=== PATIENT | female | born 1995 | race Caucasian/White ===

== ENCOUNTER → 2017-05-10 | Outpatient (CLI) | payer OTHER ==
[2017-05-10 18:42] LABS: URINE APPEARANCE TURBID (CLEAR); URINE BILIRUBIN NEG (NEG); URINE COLOR YELLOW; URINE EPITHELIAL CELL AUTO >30 /lpf (0-5); URINE NITRITE NEG (NEG); URINE PH 8.5 (4.5-7.5); URINE SPECIFIC GRAVITY 1.022 (1.000-1.030); UROBILINOGEN NEG (NEG)
[2017-05-10 18:44] LABS: MANUAL MICROSCOPIC REQUIRED? NO; REVIEW REQ? NO
== END | disposition home or self-care (01) ==
LOC: C.LABSPEC 17:03
PROVIDERS: ATTEND Obstetrics & Gynecology
DX: Z34.01 Encounter for supervision of normal first pregnancy, first trimester (principal)

== ENCOUNTER → 2017-05-13 | Outpatient (CLI) | payer OTHER ==
[2017-05-17 10:27] LABS: CHLAMYDIA TRACH RNA*** NOT DETECTED (NOT DETECTED); GC (NEIS GONORRHOEAE)RNA** NOT DETECTED (NOT DETECTED)
== END | disposition home or self-care (01) ==
LOC: C.LABSPEC 13:26
PROVIDERS: ATTEND Obstetrics & Gynecology
DX: Z34.01 Encounter for supervision of normal first pregnancy, first trimester (principal)

== ENCOUNTER → 2017-05-13 | Outpatient (CLI) | payer OTHER | END | disposition home or self-care (01) | LOC: C.LAB1850 17:13 | PROVIDERS: ATTEND Obstetrics & Gynecology | DX: O02.1 Missed abortion (principal) ==

== ENCOUNTER → 2017-05-13 | Outpatient (CLI) | payer OTHER | END | disposition home or self-care (01) | LOC: C.PAPS 17:51 | PROVIDERS: ATTEND Obstetrics & Gynecology | DX: Z34.02 Encounter for supervision of normal first pregnancy, second trimester (principal) ==

== ENCOUNTER 2018-11-28 03:39 | Inpatient (IN) ==
[2018-11-28] MEDS: LACTATED RINGER'S 1,000 ML IV PRN ×2 (04:30→05:26)
[2018-11-28] MEDS ORDERED: BUPIVACAINE 0.25% 30 ML VIAL ONE (04:39)
[2018-11-28] MEDS ORDERED: ePHEDrine sulfate 50 MG/ML AMP ONE (04:39)
[2018-11-28] MEDS ORDERED: fentaNYL 2MCG/ML ROPIV 1.25MG/ML 100 ML BAG EPI ONE (04:40)
[2018-11-28] MEDS ORDERED: fentaNYL citrate 100 MCG/2 ML VIAL ONE (04:40)
[2018-11-28 05:13] LABS: Hematocrit (blood only) 29.8 % (37-47); Hemoglobin 10.1 g/dL (12.0-16.0); Mean Corpuscular Volume 87.6 fL (80-100); Mean Platelet Volume 9.8 fL (7.4-10.4); Platelet Count 256 K/uL (130-400); RDW Coefficient of Variation 15.5 % (11.5-14.5); White Blood Count 19.96 K/uL (4.8-10.8)
[2018-11-28 05:16] LABS: Mean Corpuscular Hgb Conc 33.9 g/dL (32-36)
--- NOTE | 2018-11-28 05:52 | Anesthesiology Consultation ---
Date of Service November 28, 2018 Assessment & Plan Chart Review Chart Review: Acceptable Risk for Labor Epidural Consults Requested none History Height/Weight Height: 5 ft 5 in Weight: 92.986 kg Allergies Allergy/AdvReac Type Severity Reaction Status Date / Time No Known Allergies Allergy Unverified 05/26/18 15:06 Medications Home Medications Medication Instructions Recorded Confirmed Last Taken vit-iron fum-folic ac 1 tab PO DAILY 05/26/18 11/28/18 11/27/18 12:00 [ Vitamin] buprenorphine HCl 8 mg SUBLINGUAL DAILY 11/26/18 11/28/18 11/28/18 00:01 fluoxetine [Prozac] 20 mg PO DAILY 11/26/18 11/28/18 11/27/18 12:00 Active Medications Generic Name Dose Route Start Last Admin Trade Name Freq PRN Reason Stop Dose Admin Lactated Ringer's 1,000 mls @ 125 mls/hr 11/28/18 04:20 11/28/18 05:26 Lr IV 11/30/18 04:19 125 mls/hr .Q8H PRN Administration L&D Protocol Protocol Past Medical History Medical History Alcohol intoxication Depression Pneumonia Spontaneous miscarriage UTI (urinary tract infection) Past Family History Family History Other Diabetes Hypertension Kidney disease Seizures Past Surgical History Surgical History No significant past surgical history Social History Smoking Status: Current every day smoker tobacco type: cigarettes Smoking cigarettes per day: 10-15 Do You Dip or Chew Tobacco: No Hx Alcohol Use: No Hx Substance Use: Yes substance use type: former substance user Physical Exam Vital Signs Last Vital Signs Temp 37.1 C 11/28/18 04:04 Pulse 80 11/28/18 05:49 Resp 18 11/28/18 04:04 BP 103/60 11/28/18 05:49 Pulse Ox 97 11/28/18 05:46
[2018-11-28] MEDS ORDERED: DiphenhydrAMINE HCL 50 MG/ML VIAL IV PRN (05:53)
[2018-11-28] MEDS ORDERED: NALOXONE HCL 1 MG in SODIUM CHLORIDE 0.9% 1000ML 1,000 ML IV PRN (05:53)
[2018-11-28] MEDS ORDERED: NALBUPHINE HCL INJ 10 MG/ML AMP IV PRN (05:53)
[2018-11-28] MEDS ORDERED: NALOXONE HCL 0.4 MG/1 ML VIAL/CARP IV PRN (05:53)
[2018-11-28] MEDS ORDERED: fentaNYL 2MCG/ML ROPIV 1.25MG/ML 100 ML BAG EPI PRN (05:53)
[2018-11-28] MEDS ORDERED: ePHEDrine sulfate 50 MG/ML AMP IV PRN (05:53)
[2018-11-28] MEDS ORDERED: Nursing to Pharmacy Communication ONE ×2 (08:25→19:04)
--- NOTE | 2018-11-28 08:53 | Obstetrical Progress Note ---
Date of Service November 28, 2018 Physical Exam Genitourinary: Manual OB Exam: + cervical dilation 3 cm and 4 cm, + cervical effacement 70%, + station high and + amniotic fluid OB Exam Monitor Tracing: + external FHT monitor used and + category I Cervidil out post exam Results & Data Vital Signs (Past 12 Hours) Vital Signs Temp Pulse Resp BP Pulse Ox 11/28/18 08:46 73 97 11/28/18 08:41 72 97 11/28/18 08:36 78 16 111/73 96 11/28/18 08:31 71 96 11/28/18 08:26 77 96 11/28/18 08:21 74 16 112/76 97 11/28/18 08:16 76 98 11/28/18 08:11 78 98 11/28/18 08:06 76 98 11/28/18 08:05 16 94/52 L 11/28/18 08:01 71 96 11/28/18 07:56 69 97 11/28/18 07:51 78 102/55 L 97 11/28/18 07:46 67 97 11/28/18 07:41 67 97 11/28/18 07:36 72 97 11/28/18 07:31 76 96 11/28/18 07:26 77 97 11/28/18 07:21 70 112/72 97 11/28/18 07:16 74 96 11/28/18 07:15 36.5 C 16 11/28/18 07:11 73 98 11/28/18 07:07 67 18 119/66 11/28/18 07:06 70 97 11/28/18 07:01 73 97 11/28/18 06:56 71 97 11/28/18 06:51 73 97 11/28/18 06:46 75 97 11/28/18 06:41 71 98 11/28/18 06:37 71 121/75 11/28/18 06:36 81 98 11/28/18 06:31 80 98 11/28/18 06:26 77 97 11/28/18 06:21 78 97 11/28/18 06:16 80 16 128/79 97 11/28/18 06:11 80 97 11/28/18 06:10 79 111/73 11/28/18 06:06 79 110/73 98 11/28/18 06:01 82 18 122/78 98 11/28/18 05:56 94 H 98 11/28/18 05:55 100 H 101/53 L 11/28/18 05:51 75 97 11/28/18 05:49 80 103/60 11/28/18 05:47 81 108/62 11/28/18 05:46 81 97 11/28/18 05:45 81 18 110/67 11/28/18 05:43 179 H 124/83 11/28/18 05:41 83 119/84 97 11/28/18 05:36 90 98 11/28/18 05:31 85 97 11/28/18 05:28 97 H 87 L 11/28/18 05:26 77 98 11/28/18 05:21 85 99 11/28/18 04:04 37.1 C 96 H 18 138/90 11/28/18 03:56 37.1 C 96 H 16 138/90
[2018-11-28] MEDS ORDERED: BUPRENORPHINE HCL 8 MG SUBL SL SCH (09:00)
[2018-11-28] MEDS: BUPRENORPHINE HCL 8 MG SUBL SL SCH ×3 (09:05→21:46)
--- NOTE | 2018-11-28 11:42 | Obstetrical Progress Note ---
Date of Service November 28, 2018 Physical Exam Genitourinary: OB Exam Abdomen: + vertex and + regular contractions Manual OB Exam: + cervical dilation 10 cm, + cervical effacement 100% and + amniotic fluid meconium OB Exam Monitor Tracing: + external FHT monitor used and + category I AROM with light meconium noted will start to push Results & Data Vital Signs (Past 12 Hours) Vital Signs Temp Pulse Resp BP Pulse Ox 11/28/18 11:36 113 H 98 11/28/18 11:35 85 125/87 11/28/18 11:31 88 98 11/28/18 11:26 82 98 11/28/18 11:21 81 98 11/28/18 11:20 60 16 114/68 11/28/18 11:16 72 97 11/28/18 11:11 89 99 11/28/18 11:06 80 124/72 97 11/28/18 11:01 89 98 11/28/18 10:56 74 95 11/28/18 10:51 71 116/71 96 11/28/18 10:46 85 97 11/28/18 10:41 71 96 11/28/18 10:38 88 18 117/58 L 11/28/18 10:37 72 174/64 H 11/28/18 10:36 90 97 11/28/18 10:32 73 94 11/28/18 10:31 75 95 11/28/18 10:26 71 97 11/28/18 10:22 95 H 123/89 11/28/18 10:21 96 H 98 11/28/18 10:16 83 98 11/28/18 10:11 83 97 11/28/18 10:06 77 95 11/28/18 10:05 82 121/76 11/28/18 10:01 80 96 11/28/18 09:56 80 97 11/28/18 09:52 81 124/81 11/28/18 09:51 96 H 97 11/28/18 09:46 81 98 11/28/18 09:41 82 97 11/28/18 09:36 87 119/71 97 11/28/18 09:31 88 97 11/28/18 09:26 84 97 11/28/18 09:21 78 98 11/28/18 09:16 83 97 11/28/18 09:15 18 11/28/18 09:11 78 98 11/28/18 09:06 81 127/82 98 11/28/18 09:01 83 97 11/28/18 08:56 82 97 11/28/18 08:51 76 116/81 96 11/28/18 08:46 73 97 11/28/18 08:41 72 97 11/28/18 08:36 78 16 111/73 96 11/28/18 08:31 71 96 11/28/18 08:26 77 96 11/28/18 08:21 74 16 112/76 97 11/28/18 08:16 76 98 11/28/18 08:11 78 98 11/28/18 08:06 76 98 11/28/18 08:05 16 94/52 L 11/28/18 08:01 71 96 11/28/18 07:56 69 97 11/28/18 07:51 78 102/55 L 97 11/28/18 07:46 67 97 11/28/18 07:41 67 97 11/28/18 07:36 72 97 11/28/18 07:31 76 96 11/28/18 07:26 77 97 11/28/18 07:21 70 112/72 97 11/28/18 07:16 74 96 11/28/18 07:15 36.5 C 16 11/28/18 07:11 73 98 11/28/18 07:07 67 18 119/66 11/28/18 07:06 70 97 11/28/18 07:01 73 97 11/28/18 06:56 71 97 11/28/18 06:51 73 97 11/28/18 06:46 75 97 11/28/18 06:41 71 98 11/28/18 06:37 71 121/75 11/28/18 06:36 81 98 11/28/18 06:31 80 98 11/28/18 06:26 77 97 11/28/18 06:21 78 97 11/28/18 06:16 80 16 128/79 97 11/28/18 06:11 80 97 11/28/18 06:10 79 111/73 06 06:06 79 110/73 98 11/28/18 06:01 82 18 122/78 98 11/28/18 05:56 94 H 98 11/28/18 05:55 100 H 101/53 L 11/28/18 05:51 75 97 11/28/18 05:49 80 103/60 11/28/18 05:47 81 108/62 11/28/18 05:46 81 97 11/28/18 05:45 81 18 110/67 11/28/18 05:43 179 H 124/83 11/28/18 05:41 83 119/84 97 11/28/18 05:36 90 98 11/28/18 05:31 85 97 11/28/18 05:28 97 H 87 L 11/28/18 05:26 77 98 11/28/18 05:21 85 99 11/28/18 04:04 37.1 C 96 H 18 138/90 11/28/18 03:56 37.1 C 96 H 16 138/90
[2018-11-28] MEDS: OXYTOCIN 30 UNITS/500 ML BAG IV PRN ×2 (12:14→12:52)
[2018-11-28] MEDS ORDERED: METHYLERGONOVINE MALEATE 0.2 MG/ML AMP ONE (12:16)
[2018-11-28] MEDS ORDERED: SUPERCREAM 0.870% 15 GM JAR EXT PRN (12:31)
[2018-11-28] MEDS ORDERED: BISACODYL 10 MG SUPP PR PRN (12:31)
[2018-11-28] MEDS ORDERED: ACETAMINOPHEN 325 MG TAB PO PRN (12:31)
[2018-11-28] MEDS ORDERED: DIPHTHERIA/TETANUS/PERTUSSIS 0.5 ML SYR/VIAL IM ONE (12:31)
[2018-11-28] MEDS ORDERED: OXYTOCIN 30 UNITS/500 ML BAG IV PRN (12:31)
[2018-11-28] MEDS ORDERED: MEASLES, MUMPS & RUBELLA VIRUS VIAL SQ ONE (12:31)
[2018-11-28] MEDS ORDERED: HYDROCORTISONE ACETATE 25 MG SUPP PR PRN (12:31)
[2018-11-28] MEDS ORDERED: BENZOCAINE 20% AER SPR 82.5 GM CAN EXT PRN (12:31)
--- NOTE | 2018-11-28 12:36 | Procedure Note ---
Vaginal Delivery Summary Date of Service November 28, 2018 Delivery Note live female over intact perineum with Apgars 8/7 weight pending. Delayed cord clamping followed by cord blood and spontaneous delivery of intact placenta with 3VC. No tears. EBL 300 ml. Final sponge and instrument count are correct. Mom and baby stable.
[2018-11-28] MEDS ORDERED: miSOPROStol 200 MCG TAB PR STA (13:08)
[2018-11-28] MEDS ORDERED: miSOPROStol 200 MCG TAB ONE (13:16)
[2018-11-28] MEDS: IBUPROFEN 600 MG TAB PO PRN ×2 (13:17→22:25)
--- NOTE | 2018-11-28 15:20 | Anesthesia Procedure Note ---
Date of Service November 28, 2018 Anesthesia Post Epidural Note Vital Signs Vital Signs: Temp Pulse Resp BP Pulse Ox 11/28/18 14:50 79 18 119/75 11/28/18 14:35 86 18 131/87 11/28/18 14:20 83 133/68 11/28/18 14:05 91 H 128/85 11/28/18 13:50 75 125/80 11/28/18 13:38 76 141/73 H 11/28/18 13:30 18 11/28/18 13:20 76 135/76 11/28/18 13:15 18 11/28/18 13:05 80 114/87 11/28/18 13:00 18 11/28/18 12:50 76 114/77 11/28/18 12:45 18 11/28/18 12:35 82 119/68 11/28/18 12:30 18 11/28/18 12:20 94 H 134/63 11/28/18 12:18 92 H 163/75 H 11/28/18 12:07 146 H 154/84 H 11/28/18 12:06 209 H 79 L 11/28/18 12:04 141 H 91 11/28/18 12:01 119 H 96 11/28/18 11:56 112 H 96 11/28/18 11:51 96 H 128/74 97 11/28/18 11:46 92 H 90 11/28/18 11:41 108 H 97 11/28/18 11:36 113 H 98 11/28/18 11:35 85 125/87 11/28/18 11:31 88 98 11/28/18 11:26 82 98 11/28/18 11:21 81 98 11/28/18 11:20 60 16 114/68 11/28/18 11:16 72 97 11/28/18 11:11 89 99 11/28/18 11:06 80 124/72 97 11/28/18 11:01 89 98 11/28/18 10:56 74 95 11/28/18 10:51 71 116/71 96 11/28/18 10:46 85 97 11/28/18 10:41 71 96 11/28/18 10:38 88 18 117/58 L 11/28/18 10:37 72 174/64 H 11/28/18 10:36 90 97 11/28/18 10:32 73 94 11/28/18 10:31 75 95 11/28/18 10:26 71 97 11/28/18 10:22 95 H 123/89 11/28/18 10:21 96 H 98 11/28/18 10:16 83 98 11/28/18 10:11 83 97 11/28/18 10:06 77 95 11/28/18 10:05 82 121/76 11/28/18 10:01 80 96 11/28/18 09:56 80 97 11/28/18 09:52 81 124/81 11/28/18 09:51 96 H 97 11/28/18 09:46 81 98 11/28/18 09:41 82 97 11/28/18 09:36 87 119/71 97 11/28/18 09:31 88 97 11/28/18 09:26 84 97 11/28/18 09:21 78 98 11/28/18 09:16 83 97 11/28/18 09:15 18 11/28/18 09:11 78 98 11/28/18 09:06 81 127/82 98 11/28/18 09:01 83 97 11/28/18 08:56 82 97 11/28/18 08:51 76 116/81 96 11/28/18 08:46 73 97 11/28/18 08:41 72 97 11/28/18 08:36 78 16 111/73 96 11/28/18 08:31 71 96 11/28/18 08:26 77 96 11/28/18 08:21 74 16 112/76 97 11/28/18 08:16 76 98 11/28/18 08:11 78 98 11/28/18 08:06 76 98 11/28/18 08:05 16 94/52 L 11/28/18 08:01 71 96 11/28/18 07:56 69 97 11/28/18 07:51 78 102/55 L 97 11/28/18 07:46 67 97 11/28/18 07:41 67 97 11/28/18 07:36 72 97 11/28/18 07:31 76 96 11/28/18 07:26 77 97 11/28/18 07:21 70 112/72 97 11/28/18 07:16 74 96 11/28/18 07:15 36.5 C 16 11/28/18 07:11 73 98 11/28/18 07:07 67 18 119/66 11/28/18 07:06 70 97 11/28/18 07:01 73 97 11/28/18 06:56 71 97 11/28/18 06:51 73 97 11/28/18 06:46 75 97 11/28/18 06:41 71 98 11/28/18 06:37 71 121/75 11/28/18 06:36 81 98 11/28/18 06:31 80 98 11/28/18 06:26 77 97 11/28/18 06:21 78 97 11/28/18 06:16 80 16 128/79 97 11/28/18 06:11 80 97 11/28/18 06:10 79 111/73 11/28/18 06:06 79 110/73 98 11/28/18 06:01 82 18 122/78 98 11/28/18 05:56 94 H 98 11/28/18 05:55 100 H 101/53 L 11/28/18 05:51 75 97 11/28/18 05:49 80 103/60 11/28/18 05:47 81 108/62 11/28/18 05:46 81 97 11/28/18 05:45 81 18 110/67 11/28/18 05:43 179 H 124/83 11/28/18 05:41 83 119/84 97 11/28/18 05:36 90 98 11/28/18 05:31 85 97 11/28/18 05:28 97 H 87 L 11/28/18 05:26 77 98 11/28/18 05:21 85 99 11/28/18 04:04 37.1 C 96 H 18 138/90 11/28/18 03:56 37.1 C 96 H 16 138/90 Pain Intensity Bilateral Abdomen: Pain Intensity: 0 Notes Mental Status: alert / awake / arousable Nausea / Vomiting: adequately controlled Pain: adequately controlled Airway Patency, RR, SpO2: stable & adequate BP & HR: stable & adequate Hydration State: stable & adequate Neuraxial Anesthesia: was administered and sensory block is resolving Anesthetic Complications: no major complications apparent and Pt Satisfied with anesthetic care Epidural: Removed without complications and With tip intact
[2018-11-28] MEDS: NICOTINE 14 MG/24 HR PATCH TD SCH (18:54)
--- NOTE | 2018-11-28 20:34 | History & Physical Report ---
Date of Service November 28, 2018 Please disregard this note. This is a nonbillable note. This note was meant to be a history and physical on luis Acevedo. I accidentally started the history and physical in the mother's electronic health record. Addendum: Evening rounds on 11/29/2018 at 10 AM: Infant did not breast-feed well but did take expressed breast milk via syringe. Temperatures have been stable and within normal limits on 11/28 afternoon, since the 2 low temperatures at around 12:30 PM on 11/28. Tachypnea resolved. Baby kept in the nursery for around the 2 hours after the feeding. The baby continued to do well with no tachypnea or grunting or nasal flaring or retractions. Pulse ox remained within normal limits in the 93 to 98% range in room air. Transferred from level 2 nursery to level 1 nursery. Requested that nursing check the respiratory rate every hour x2 and then every 2 hours overnight. If tachypnea returns or the baby develops any signs or symptoms of respiratory distress or hypoxia, then return to level 1 nursery. Follow NIKKIE scores. Follow-up on urine toxicology screen results. I discussed the risk category from Dr. Tellez's textbook for Prozac and nicotine patch with the mother and father. I had my usual and customary discussion regarding risk category. Delivery Information [place] Information Weight: 3.43 kg Length (inches): 1.65 m Sex: F Race: White Date of : 11/28/18 Time of : 12:06 Mother's Information : 2 Para: 0 Physical Exam Physical Exam: 11/28/2018: Exams at approximately 12:30 PM and again at approximately 8:15 PM: Initial temperature low at 36.2 degrees. Repeat temperature 37.5 degrees and then 37.8 degrees, under warmer bed. Initial heart rate 160. Repeat heart rate 152. Most recent heart rate normal at 118. Respiratory rates 50s to a maximum of 90. Current respiratory rate 55-62. Pulse oximetry 93 to 96% in room air. Blood glucose 89. Repeat 68. Constitutional: No obvious dysmorphic or syndromic features. Initially mild intermittent grunting on initial exam but on repeat exams the baby seems comfortable, normal appearance. On initial exam the infant seemed to have increased tone. Normal tone on the evening exam. No apparent distress, cry not abnormal. Normal color Eyes: Normal red reflex bilaterally ENMT: Ears: Normal ears. Nose: nares patent. Mouth: no lip deformity, no palate deformity, no cleft lip and no cleft palate. Respiratory: On initial exam after being brought back from the delivery room, the had intermittent grunting and intermittent mild subcostal retractions but no nasal flaring. On repeat exams the grunting and subcostal retractions resolved. + Intermittent tachypnea this afternoon but resolves without intervention. Pulse oximetry readings have been 93 to 96% range in room air this afternoon. Normal respiratory effort currently. Not tachypneic at this time this evening.; no respiratory distress, no accessory muscle use, not tachypneic, no grunting, no nasal flaring and no retractions Auscultation: lungs clear and normal breath sounds Cardiovascular: Rate/Rhythm: regular rate and regular rhythm Heart Sounds: no gallop and no murmurs. Vessels: normal femoral and brachial pulses bilaterally. Gastrointestinal (Abdomen): Inspection/Auscultation: Normal abdominal appearance. Normal bowel sounds; no umbilical stump abnormality Percussion/Palpation: abdomen soft; no palpable abdominal masses, no hepatomegaly and no splenomegaly Anus patent. Musculoskeletal: Head/Neck: + Molding, No Caput. Anterior fontanelle open and flat . No cephalohematoma Spine: no obvious spine abnormality. No sacrococcygeal dimples. Extremities: Clavicles intact. Normal hips; no hip clicks. No cyanosis. Skin: normal color; no jaundice, no pallor and no abnormal lesions. No rashes Neurologic: Reflexes: normal [place] reflex, normal suck and normal grasp. Genitourinary: normal female genitalia.
[2018-11-28] MEDS: DOCUSATE SODIUM 100 MG CAP PO SCH (21:45)
[2018-11-28] MEDS: FLUOXETINE HCL 20 MG CAP PO SCH (21:45)
[2018-11-29 06:31] LABS: Hematocrit (blood only) 28.8 % (37-47); Hemoglobin 9.8 g/dL (12.0-16.0); Mean Corpuscular Volume 88.9 fL (80-100); Mean Platelet Volume 9.7 fL (7.4-10.4); Platelet Count 257 K/uL (130-400); RDW Coefficient of Variation 15.8 % (11.5-14.5); RDW Standard Deviation 50.9 fL (36.4-46.3); Red Blood Count 3.24 M/uL (4.2-5.4); White Blood Count 19.73 K/uL (4.8-10.8)
--- NOTE | 2018-11-29 08:07 | Obstetrical Progress Note ---
Date of Service November 29, 2018 Subjective Patient is seen and examined. She feels well, no complaints. Ambulating without dizziness Voiding without difficulty Tolerating regular diet with out N&V Bleeding is minimal No fever/ chills/ CP/ SOB/ N&V/ Leg pain Breast feeding without problems Vital Signs Temp Pulse Resp BP 11/29/18 04:50 36.7 C 75 18 110/69 11/28/18 23:30 36.5 C 71 18 121/76 11/29/18 Range/Units 06:14 WBC 19.73 H (4.8-10.8) K/uL RBC 3.24 L (4.2-5.4) M/uL Hgb 9.8 L (12.0-16.0) g/dL Hct 28.8 L (37-47) % MCV 88.9 (80-100) fL MCH 30.2 (25-34) pg MCHC 34.0 (32-36) g/dL RDW Std Deviation 50.9 H (36.4-46.3) fL RDW Coeff of Katharine 15.8 H (11.5-14.5) % Plt Count 257 (130-400) K/uL MPV 9.7 (7.4-10.4) fL PE: General: Alert, orientedx3, NAD Abd: soft, NT, fundus firm, below Umbilicus Perineum intact, Lochia rubra minimal Ext; NT, no edema AP: 23 yo s/p , ppd# 1 VSS Afebrile doing well Continue routine care All questions were answered D/C home tomorrow Results & Data Vital Signs (Past 12 Hours) Vital Signs Temp Pulse Resp BP 11/29/18 04:50 36.7 C 75 18 110/69 11/28/18 23:30 36.5 C 71 18 121/76
[2018-11-29] MEDS: DOCUSATE SODIUM 100 MG CAP PO SCH ×2 (08:27→21:15)
[2018-11-29] MEDS: PRENATAL VITAMIN 1 TAB PO SCH (08:27)
[2018-11-29] MEDS: NICOTINE 14 MG/24 HR PATCH TD SCH (08:28)
[2018-11-29] MEDS: FERROUS SULFATE 325 MG TAB PO SCH (08:28)
[2018-11-29] MEDS: BUPRENORPHINE HCL 8 MG SUBL SL SCH ×3 (08:29→21:14)
[2018-11-29] MEDS ORDERED: NON-FORMULARY MEDICATION (Prenatal Vit-Iron Fum-Folic Ac [Prenatal Vitamin] 1 TAB) PO SCH (09:00)
[2018-11-29] MEDS ORDERED: FLUOXETINE HCL 20 MG CAP PO SCH (09:00)
[2018-11-29] MEDS ORDERED: BUPRENORPHINE HCL 8 MG SUBL SL SCH (09:00)
[2018-11-29] MEDS: IBUPROFEN 600 MG TAB PO PRN ×3 (11:15→21:13)
[2018-11-29] MEDS ORDERED: BISACODYL 5 MG TABEC PO SCH (20:00)
[2018-11-29] MEDS: FLUOXETINE HCL 20 MG CAP PO SCH (21:15)
[2018-11-30] MEDS: IBUPROFEN 600 MG TAB PO PRN ×2 (06:33→16:36)
[2018-11-30 06:53] LABS: Hemoglobin 9.9 g/dL (12.0-16.0); Mean Corpuscular Volume 88.8 fL (80-100); Mean Platelet Volume 9.4 fL (7.4-10.4); Platelet Count 308 K/uL (130-400); RDW Coefficient of Variation 15.8 % (11.5-14.5); Red Blood Count 3.38 M/uL (4.2-5.4); White Blood Count 16.77 K/uL (4.8-10.8)
[2018-11-30 07:26] LABS: Basophils # (auto) 0.04 K/uL (0-0.2); Basophils % (auto) 0.2 %; Eosinophils # (auto) 0.37 K/uL (0-0.5); Eosinophils % (auto) 2.2 %; Immature Granulocytes # (auto) 0.42 K/uL (0.00-0.02); Immature Granulocytes % (auto) 2.5 %; Lymphocytes # (auto) 5.51 K/uL (1.2-3.4); Lymphocytes % (auto) 32.9 %; Monocytes # (auto) 1.17 K/uL (0.11-0.59); Neutrophils # (auto) 9.26 K/uL (1.4-6.5); Neutrophils % (auto) 55.2 %
--- NOTE | 2018-11-30 08:55 | Obstetrical Progress Note ---
Date of Service November 30, 2018 Physical Exam Physical Exam: abdomen soft and non tender vaginal bleeding scant to moderate no calf tenderness ambulating well hgb 9.9 Results & Data Vital Signs (Past 12 Hours) Vital Signs Temp Pulse Resp BP Pulse Ox 11/30/18 00:00 36.4 C L 97 H 20 123/89 99 11/29/18 21:00 36.6 C 80 18 127/83 100
[2018-11-30] MEDS: PRENATAL VITAMIN 1 TAB PO SCH (09:48)
[2018-11-30] MEDS: FERROUS SULFATE 325 MG TAB PO SCH (09:49)
[2018-11-30] MEDS: NICOTINE 14 MG/24 HR PATCH TD SCH (09:50)
[2018-11-30] MEDS: BUPRENORPHINE HCL 8 MG SUBL SL SCH ×2 (09:52→16:38)
--- NOTE | 2018-12-02 09:01 | Coding Query ---
CODING QUERY To promote full compliance with coding requirements relating to patient care, provider participation is requested in all cases of transportation officer uncertainty. Please assist us with the question(s) below: Coding Question(s): Dr. Casanova, For accurate and complete coding, please document the patient's gestational weeks: Weeks of gestation: ___40____ Is the patient: ( ) post term ( x ) at term ( ) ( ) unable to determine Also, a history of drug use is mentioned in the anesthesiologist report. Please clarify if: ( ) patient is a current illegal drug user Please list drug(s) used: ( ) patient is a current illegal drug abuser Please list drug(s) abused ( ) patient is currently illegal drug dependent Please list drug(s) of dependency ( ) patient is a former illegal drug user ( ) patient is a former illegal drug abuser, but in remission Please list drug(s) formerly abused ( ) patient is formerly illegal drug dependent, but in remission Please list drug(s) of dependency ( ) patient has never used illegal drugs ( x) Unable to determine ( ) Other, please explain Physician's Response(s): Thank you for your time, MIRYAM Gabriel, [facility]
== END 2018-11-30 18:10 | disposition home or self-care (01) | DRG 807 ==
LOC: OPB 03:39 → 4S1 03:47 → 4S2 15:40